=== PATIENT | female | born 1965 | race Two or more races ===

== ENCOUNTER 2018-06-25 06:01 | Day surgery (SDC) | payer OTHER ==
[2018-06-25] MEDS ORDERED: ceFAZolin 2 GM/50 ML 2 GM/50 ML BAG IV ONE (06:30)
[2018-06-25] MEDS ORDERED: LACTATED RINGERS 1,000 ML IV ONE (06:31)
--- NOTE | 2018-06-25 07:16 | ANESTHESIA ---
Pre-Anesthesia VS, & Labs - Diagnosis R CTS - Procedure R CTR Vital Signs: Temp Pulse Resp BP Pulse Ox 36.4 C L 69 16 146/89 H 99 06/25/18 06:32 06/25/18 06:32 06/25/18 06:32 06/25/18 06:32 06/25/18 06:32 Height 5 ft 2 in Weight (kg) 76 kg Body Mass Index 30.3 - NPO >8 hours - Is Patient ?: No Home Medications and Allergies Home Medications: Ambulatory Orders Atenolol 25 mg PO 06/18/18 Loratadine [Claritin] 10 mg PO 06/18/18 Atenolol 25 mg PO 06/18/18 Loratadine [Claritin] 10 mg PO 06/18/18 Allergies/Adverse Reactions: Allergies Allergy/AdvReac Type Severity Reaction Status Date / Time shrimp Allergy Edema Verified 06/18/18 09:52 Anes History & Medical History - Anesthetic History Anesthesia Complications: reports: No previous complications Family history of Anesthesia Complications: Denies Family history of Malignant Hyperthermia: Denies - Medical History Cardiovascular: reports: Hypertension Pulmonary: reports: None Gastrointestinal: reports: None Urinary: reports: None Musculoskeletal: reports: Other Endocrine/Autoimmune: reports: None Skin: reports: None Smoking Status: Never smoker - Surgical History Urologic:  Gynecologic: section, Tubal ligation Exam General: Alert, Oriented x3, Cooperative Dental: WNL Mouth Openin Fingerbreadth Neck Mobility: Normal Mallampati classification: II Thyromental Distance: 4-6 cm Respiratory: Lungs clear, Normal breath sounds Neurological: Normal speech Mental/Cognitive Status: Alert/Oriented X3, Normal for patient Plan Anesthesia Type: General Consent for Procedure(s) Verified and Reviewed: Yes Code Status: Attempt Resuscitation ASA classification: 2-Mild systemic disease Is this case an emergency?: No
[2018-06-25] MEDS ORDERED: BUPIVACAINE 0.25% PF 30 ML VIAL ONE (07:19)
[2018-06-25] MEDS ORDERED: MIDAZOLAM 2 MG/2 ML VIAL IVP ONE (08:01)
[2018-06-25] MEDS ORDERED: LIDOCAINE-MPF 2% 5 ML VIAL IM ONE (08:01)
[2018-06-25] MEDS ORDERED: PHENYLEPHRINE 50 MG/5 ML VIAL IV ONE (08:01)
[2018-06-25] MEDS ORDERED: DEXAMETHASONE 4 MG/ML VIAL IVP ONE (08:01)
[2018-06-25] MEDS ORDERED: PROPOFOL 200 MG/20 ML VIAL IVP ONE (08:01)
[2018-06-25] MEDS ORDERED: ONDANSETRON 4 MG/2 ML VIAL IVP ONE (08:01)
[2018-06-25] MEDS ORDERED: KETOROLAC 30 MG/ML VIAL IVP ONE (08:01)
[2018-06-25] MEDS ORDERED: fentaNYL 100 MCG/2 ML VIAL IVP ONE (08:01)
[2018-06-25] MEDS ORDERED: BUPIVACAINE 0.25% PF 30 ML VIAL SUBQ ONE ×2 (08:18)
[2018-06-25] MEDS ORDERED: oxyCODONE 5 MG TABLET PO PRN (09:05)
[2018-06-25] MEDS ORDERED: ONDANSETRON 4 MG/2 ML VIAL IVP PRN (09:05)
--- NOTE | 2018-06-25 09:12 | OPERATIVE REPORT ---
Operative Report - General Procedure Date: 06/25/18 Planned Procedure: Right open carpal tunnel release Pre-Op Diagnosis: Right carpal tunnel syndrome Procedure Performed: Right open carpal tunnel release Post Op Diagnosis: Right carpal tunnel syndrome - Procedure Note Primary Surgeon: Brad Smith Secondary Surgeon: Telly Mohr Anesthesia Technique: General LMA Estimated Blood Loss (mL): 5 - Other Other Information/Narrative: Tourniquet Time: 17 minutes at 250mmHg. Specimen(s) Information: None Complication(s): None Condition: Stable to recovery Indications for Surgery: The patient is a 52-year-old right hand dominant female with a 5-year history of right hand numbness in the median nerve distribution. Clinical exam and EMG consistent with severe right carpal tunnel syndrome. They had failed non- operative management and desired surgical intervention. Risks of surgery were discussed to include bleeding, infection, postoperative wrist stiffness, damage to nerves (including the median nerve and recurrent motor branch to the thenar musculature), vessels, tendons, ligaments, anesthesia complications to include medication side effects and allergic reactions, blood clot, stroke, heart attack and even . After a discussion, they wished to proceed. Findings: Thickened transverse carpal ligament Descriptions of Procedure: The patient was met in the Preoperative Holding Area, at which time preoperative paperwork was confirmed. The right volar wrist was signed. The patient was then brought to Main Operating Room, placed supine on the Operating Room table, at which time pre procedure timeout was conducted to confirm correct patient, correct extremity and correct procedure and also to confirm presence and sterility of all required equipment and to confirm that antibiotics were being administered in the form of 2g of intravenous Ancef. After this was confirmed, general anesthesia was induced. The operative extremity was then prepped and draped over a hand table in the normal sterile fashion after a well-padded tourniquet was placed on the proximal arm. A final timeout was conducted to confirm the correct patient, correct extremity and correct procedure and to confirm that antibiotics had been administered within 30 minutes of incision time. The operative extremity was then exsanguinated with an Esmarch bandage and tourniquet inflated to 250mmHg. Painting's cardinal line, and the proximal projection of the radial border of the fourth digit, the hook of hamate and pisiform were marked on the hand. A 3cm longitudinal incision was made with a #15 blade through skin and subcutaneous tissue. Dissection was further carried out with tenotomy scissors. Small crossing vessels were coagulated with bipolar electrocautery, the palmar fascia was exposed, and split longitudinally in line with its fibers, the fat was retracted ulnarly, and the transverse carpal ligament was exposed. A 15 blade was used to make a small incision in the transverse carpal ligament, and then a small mosquito clamp was introduced di rectly deep to the ligament above the contents of the carpal tunnel to gently free off any adhesions between the deep surface of the transverse carpal ligament and the median nerve. Dissection was carried distally under direct visualization, releasing the transverse carpal ligament until the palmar fat was was visualized. Digital examination was performed to ensure that there were no remaining tight bands constricting the nerve. Attention was then turned proximally, and a [place] elevator was passed deep to the transverse carpal ligament and antebrachial fascia, and these were incised in line with the nerve approximately 2 cm proximal to the distal wrist crease. This was performed under direct visualization. Again digital examination of the proximal extent of the release was performed to ensure no tight bands or constrictive points remained over the nerve. Satisfied that the carpal tunnel had been completely released, the wound was irrigated, and the tourniquet was let down. Pressure was held on the incision for approximately 5 minutes, and bleeding points were then cauterized with bipolar electrocautery. After ensuring good hemostasis, the wound was again irrigated and then closed with 4-0 Prolene in interrupted horizontal mattress fashion. 10 mL of quarter percent Marcaine plain, was injected into the amadeo-incisional soft tissues. The wound was then dressed with Xeroform, 4 x 4 gauze,, webril and a compressive [place] wrap. The patient was then awakened from general anesthesia without complication, brought to the Post Anesthesia Care for further recovery. Postoperative Plan: 1. The patient will be discharged from the Same Day Surgery Unit when discharge criteria are met. 2. The patient will remain in a soft dressing until follow-up. They can begin gentle wrist range of motion on postoperative day #1 or #2 as pain allows. 3. The patient will follow up in 12 days for a wound check and range of motion check. 4. Expect return to full duty in 6-8 weeks, they may have wrist stiffness postoperatively.
[2018-06-25 10:09] VITALS: BP 146/68
== END 2018-06-25 06:02 | disposition home or self-care (01) ==
LOC: SDS 06:01
PROVIDERS: ATTEND Orthopaedic Surgery
PROC: 01N50ZZ Release Median Nerve, Open Approach (ICD-10-PCS; principal; 2018-06-25 07:30)
DX: G56.01 Carpal tunnel syndrome, right upper limb (principal); I10 Essential (primary) hypertension; Z79.891 Long term (current) use of opiate analgesic
CPT/HCPCS: 64721; J0690; J7120

== ENCOUNTER 2019-01-29 18:49 | Outpatient (CLI) | payer OTHER ==
--- NOTE | 2019-01-29 23:50 | Ultrasound Report ---
Reason: BLADDER PAIN, HEMATURIA Procedure Date: 01/29/2019 Accession Number: [id number] / [id number] Procedure: US - Pelvic w/Transvaginal CPT Code: FULL RESULT: EXAM: PELVIC ULTRASOUND EXAM DATE: 01/29/2019 06:58 PM. CLINICAL HISTORY: Bladder pain, hematuria. COMPARISON: None. TECHNIQUE: Realtime transabdominal pelvic scan performed to identify the uterus and adnexa and as an overview of other pelvic structures, followed by transvaginal scan to provide greater detail of the uterus and adnexa, with static image documentation. FINDINGS: Uterus: 8 x 3.8 x 4.8 cm, volume 75.7 cc. Anteverted position. Normal overall size and echotexture. Masses: None. Endometrium: 3 mm. Normal. Cervix: Unremarkable. Right Ovary: 1.8 x 1.2 x 1.5 cm, volume 1.7 cc. Suboptimal visualization but grossly normal. Left Ovary: 1.5 x 1.6 x 1.4 cm, volume 1.7 cc. Suboptimal visualization but grossly normal. Free Fluid: None. Other: Cervical nabothian cysts. IMPRESSION: Unremarkable pelvic ultrasound exam. RADIA
--- NOTE | 2019-02-01 06:36 | Ultrasound Report ---
Reason: BLADDER PAIN, HEMATURIA Procedure Date: 01/29/2019 Accession Number: [id number] / [id number] Procedure: US - Retroperitoneal CPT Code: FULL RESULT: EXAM: RENAL ULTRASOUND EXAM DATE: 01/29/2019 06:55 PM. CLINICAL HISTORY: Bladder pain, hematuria. COMPARISON: PELVIC W/TRANSVAGINAL 01/29/2019 6:58 PM CHEST W/O 04/19/2013 4:58 PM. TECHNIQUE: Real-time scanning was performed with static images obtained. FINDINGS: Right Kidney: 9.4 x 6 x 6.1 cm. Normal echotexture. There is a simple appearing 3.4 cm cyst at the mid aspect of the right kidney. No stones or hydronephrosis. Left Kidney: 9.9 x 5.5 x 4.8 cm. Normal echotexture with no stones, contour-deforming masses, or hydronephrosis. Bladder: Bilateral jets seen. The prevoid bladder volume was 416.3 cc. The postvoid bladder volume was 21.5 cc. Other: None. IMPRESSION: 1. Simple 3.4 cm right renal cyst. 2. Otherwise unremarkable kidneys and urinary bladder. RADIA
== END 2019-01-29 18:50 | disposition home or self-care (01) ==
LOC: DI 18:49
PROVIDERS: ATTEND Obstetrics & Gynecology
DX: R39.89 Other symptoms and signs involving the genitourinary system (principal); R31.9 Hematuria, unspecified; N28.1 Cyst of kidney, acquired
CPT/HCPCS: 76770; 76830; 76856

== ENCOUNTER 2022-06-13 14:17 | Outpatient (CLI) | payer OTHER ==
--- NOTE | 2022-06-13 19:52 | MRI Report ---
PROCEDURE: KNEE WO - LT INDICATIONS: LEFT KNEE PAIN TECHNIQUE: Noncontrast sagittal PD fast spin echo and T2 fast spin echo with fat saturation, sagittal 3-D gradie nt sequence with fat saturation; coronal T1 spin echo and PD fast spin echo with fat saturation, and axial PD fast spin echo with fat saturation through the knee. COMPARISON: None. FINDINGS: Image quality: Excellent. Menisci: Complex oblique tear involving posterior horn of medial meniscus is seen extending to inferi or articulating surface. Lateral meniscus is intact. Low-grade partial-thickness tear involving poste rior medial meniscal root ligament is seen. Cruciate ligaments: The anterior cruciate ligament is intact. Posterior cruciate ligament with intra substance T2 hyperintense signal is noted particularly near its tibial insertion. Medial structures: The medial collateral ligament appears mildly thickened with intrasubstance T2 hy perintense signal. The posterior oblique ligament, semimembranosus tendon insertions, and oblique po pliteal ligament, and meniscocapsular junction appear intact. Visualized portions of the pes anserin us tendons appear normal. No abnormal bursal fluid. Lateral structures: The lateral collateral ligament, long and short heads of the biceps femoris tend on appear intact. The popliteus tendon appears normal; the popliteofibular ligament appears intact. Iliotibial band appears normal. Anterior structures: The quadriceps and patellar tendons appear intact. Patellar alignment is jackeline l. No femoral trochlear dysplasia or ventral trochlear prominence. No edema in the infrapatellar fa t pad. Bones and cartilage: No bone marrow contusions or fractures. Mild tricompartmental osteoarthritis an d low-grade chondromalacia is seen most notably in medial femoral tibial compartment. Joint space: There is moderate knee joint fluid. No gross loose bodies. No Herman's cyst. Normal ap pearing synovial plicae are incidentally noted. IMPRESSION: 1. Complex oblique tear involving posterior horn of medial meniscus extending to inferior articular s urface. Low to moderate grade partial-thickness tear involving posterior medial meniscal root ligamen t. Lateral meniscus is intact. 2. ACL is intact. Sprain/low-grade intrasubstance partial thickness tear involving posterior cruciate ligament near its tibial insertion. No full-thickness PCL rupture. 3. Low-grade MCL sprain. 4. Mild tricompartmental osteoarthritis and low-grade chondromalacia most notably in medial femoral t ibial compartment. No fracture or dislocation. 5. Moderate joint effusion, no gross loose bodies. Reviewed by: Cole Mclaughlin MD on 06/13/2022 7:51 PM PST Approved by: Cole Mclaughlin MD on 06/13/2022 7:51 PM PST Station ID: [id number]
== END 2022-06-13 14:18 | disposition home or self-care (01) ==
LOC: DI 14:17
PROVIDERS: ATTEND Family Medicine
DX: S83.232A Complex tear of medial meniscus, current injury, left knee, initial encounter (principal); S83.522A Sprain of posterior cruciate ligament of left knee, initial encounter; S83.412A Sprain of medial collateral ligament of left knee, initial encounter; M17.11 Unilateral primary osteoarthritis, right knee; M25.462 Effusion, left knee; M94.262 Chondromalacia, left knee